=== PATIENT | male | born 1955 | race American Indian/Alaskan Native ===

== ENCOUNTER 2019-06-10 18:36 | Emergency (ER) | payer SELFPAY ==
[2019-06-10 18:44] VITALS: BP 182/106
--- NOTE | 2019-06-10 21:41 | XRay Report ---
LEFT FOOT 3 VIEW(S) INDICATION / CLINICAL INFORMATION: MAIN: nail in lt foot COMPARISON: None available. FINDINGS: BONES / JOINT(S): No acute fracture or subluxation. No significant arthritis. SOFT TISSUES: No radiopaque foreign body. ADDITIONAL FINDINGS: None. Signer Name: Nimco Herndon MD Signed: 06/10/2019 9:37 PM Workstation Name: [id number]
== END 2019-06-11 03:20 | disposition left against medical advice (07) ==
LOC: ED 18:36
DX: M79.89 Other specified soft tissue disorders (principal); Z53.21 Procedure and treatment not carried out due to patient leaving prior to being seen by health care provider